=== PATIENT | male | born 1970 | race Caucasian/White ===

== ENCOUNTER 2020-08-25 10:53 | Outpatient (CLI) | payer OTHER, SELFPAY ==
--- NOTE | ~2020-08-25 | XR_ITS ---
EXAMINATION: XR chest 2V 08/25/2020 11:07 INDICATION: Dyspnea PROCEDURE: 2 view chest COMPARISON: 12/15/2013 FINDINGS: The lungs are clear. The cardiomediastinal silhouette is within normal limits. There are no pleural effusions. There is no pneumothorax suspected. IMPRESSION: 1: NO ACUTE CARDIOPULMONARY DISEASE. Reviewed, dictated and finalized at location A.
== END 2020-08-25 10:54 ==
PROVIDERS: PCP Internal Medicine; Visit Provider Internal Medicine
DX: R06.00 Dyspnea, unspecified (principal); R05 Cough
CPT/HCPCS: 71046

== ENCOUNTER 2020-10-17 09:05 | Outpatient (CLI) | payer OTHER, SELFPAY ==
--- NOTE | ~2020-10-17 | NM_ITS ---
EXAMINATION: NM isaac stress w perfusion DATE: 10/17/2020 11:42 INDICATION: Dyspnea on exertion. TECHNIQUE: Rest images were obtained following intravenous administration of 10 mCi Tc99m tetrofosmin (Myoview). The patient was infused intravenously with Lexiscan (regadenoson). Then, 30.5 mCi Tc99m t etrofosmin (Myoview) was administered intravenously, and stress images were obtained. Data was recons tructed into short axis and horizontal and vertical long axis SPECT images. Gated SPECT images were a lso obtained. COMPARISON: None. FINDINGS: There is no definite reversible or fixed perfusion abnormality to suggest ischemia or infar ction. There is no segmental wall motion abnormality. Left ventricular ejection fraction measures 5 9%. IMPRESSION: 1. No definite ischemia or infarct. 2. Normal left ventricular ejection fraction measuring 59%. Reviewed, dictated and finalized at location A.
--- NOTE | 2020-10-17 09:50 | EST_ITS ---
Patient Info Name: Adán Holt Age: 49 years : 1970 Gender: Male Ht: 72 in Wt: 350 lbs BSA: 2.92 m2 HR: 84 bpm BP: 147 / 89 mmHg Heart Rhythm: Sinus Rhythm Exam Date: 10/17/2020 10:17 AM Exam Location: [facility] Stress Patient Status: Outpatient Admit Date: 10/17/2020 Staff Ordering Physician: Bud Belcher DO Attending Provider: Bud Belcher DO Exercise Technologist: Samara Alonso CT Exercise Physician: Chu Allen DO Exam Type: CA stress isaac w NM Study Info A regadenoson stress test was performed. Summary 1. 1. Negative lexiscan stress test for ischemic ST changes by ECG criteria. 2. 2. Baseline hypertension. 3. 3. Nuclear scan to follow and will be reported separately. Please correlate with it. 4. 4. Patient informed of the above results. Protocol: Lexiscan Stress ECG Details Stage: REST Duration (min): 1 min : 9 sec HR (bpm): 86 SBP (mmHg): 147 DBP (mmHg): 89 Stage: REST Duration (min): 8 min : 1 sec HR (bpm): 83 SBP (mmHg): 147 DBP (mmHg): 89 Stage: STAGE 1 Duration (min): 1 min : 0 sec HR (bpm): 99 SBP (mmHg): 161 DBP (mmHg): 108 Stage: RECOVERY Duration (min): 1 min : 0 sec HR (bpm): 101 SBP (mmHg): 161 DBP (mmHg): 108 Stage: RECOVERY Duration (min): 2 min : 0 sec HR (bpm): 94 SBP (mmHg): 154 DBP (mmHg): 98 Stage: RECOVERY Duration (min): 2 min : 6 sec HR (bpm): 94 SBP (mmHg): 154 DBP (mmHg): 98 Rest HR: 83 bpm Peak HR: 102 bpm Rest Sys BP: 147 mmHg Peak Sys BP: 161 mmHg Max Pred HR: 171 bpm % Max Pred HR: 60 % Target HR: 145 bpm Max RPP: 16,422 bpm*mmHg Termination Reason: Completed protocol Cardiac Symptoms: Shortness of breath Total Time: 1 min : 0 sec Rest Noriega BP: 89 mmHg Peak Noriega BP: 108 mmHg Total Dose: 0.4 mg Resting ECG Sinus rhythm. Stress ECG No ST changes. Arrhythmias None. Report Signatures
== END 2020-10-17 09:06 | disposition home or self-care (01) ==
PROVIDERS: PCP Internal Medicine; Visit Provider Internal Medicine
DX: R06.00 Dyspnea, unspecified (principal)
CPT/HCPCS: 78452; 93017; A9502; J2785

== ENCOUNTER → 2021-04-16 08:14 | Outpatient (CLI) | payer OTHER, SELFPAY ==
[2021-04-16 12:53] LABS: Influenza A QL RT-PCR Negative (Negative); Influenza B QL RT-PCR Negative (Negative); SARS-CoV-2 RNA PCR Positive
== END ==
PROVIDERS: PCP Internal Medicine; Visit Provider Internal Medicine
DX: R68.89 Other general symptoms and signs (principal); U07.1 COVID-19
CPT/HCPCS: 87502; C9803; U0003; U0005